=== PATIENT | female | born 1990 | race Hispanic/Latino ===

== ENCOUNTER → 2018-01-06 | Outpatient (REF) | payer OTHER ==
[2018-01-06 21:06] LABS: BASO % 0.5 % (0.0-1.0); EOS # 0.1 10^3/uL (0.0-0.50); EOS % 1.4 % (0.0-3.0); HEMATOCRIT 38.3 % (36.0-47.0); HEMOGLOBIN 13.2 g/dl (12.0-15.5); IMMATURE GRANULOCYTE % 0.3 % (0-3.0); LYMPH # 2.4 10^3/uL (1.5-6.5); LYMPH % 32.6 % (24.0-44.0); MEAN CORPUSCULAR HEMOGLOBIN 31.4 pg (27.0-33.0); MEAN CORPUSCULAR HGB CONC 34.5 g/dl (32.0-36.5); MONO # 0.6 10^3/uL (0.0-0.8); NEUTROPHILS # 4.2 10^3/uL (1.8-7.7); NEUTROPHILS % 57.2 % (36.0-66.0); PLATELET COUNT, AUTOMATED 355 10^3/uL (150-450); RED BLOOD COUNT 4.21 10^6/uL (4.00-5.40); WHITE BLOOD COUNT 7.4 10^3/uL (4.0-10.0)
[2018-01-06 21:28] LABS: FREE T4 0.94 NG/DL (0.76-1.46)
[2018-01-06 21:56] LABS: TOTAL 25(OH) VITAMIN D 13.9 NG/ML (30.0-100.0)
[2018-01-09 00:07] LABS: QUANTIFERON GOLD TB Negative (Negative); TB Test (QFT) Antigen 0.14 IU/mL (.); TB Test (QFT) Antigen Minus Ni 0.06 IU/mL (.); TB Test (QFT) Mitogen 6.87 IU/mL (.); TB Test (QFT) Nil 0.08 IU/mL (.)
== END ==
LOC: M SFHCLERA 16:55
DX: R53.82 Chronic fatigue, unspecified (principal)

== ENCOUNTER → 2018-04-08 | Outpatient (REF) | payer OTHER ==
[2018-04-08 11:56] LABS: TOTAL 25(OH) VITAMIN D 30.3 NG/ML (30.0-100.0)
== END ==
LOC: M SFHCLERA 09:24
DX: E55.9 Vitamin D deficiency, unspecified (principal)
CPT/HCPCS: 82306

== ENCOUNTER 2018-09-16 13:09 | Emergency (ER) | payer OTHER | END 2018-09-16 14:40 | disposition home or self-care (01) | LOC: M ED 13:09 | DX: S76.101A Unspecified injury of right quadriceps muscle, fascia and tendon, initial encounter (principal); Y99.9 Unspecified external cause status | CPT/HCPCS: 93971 ==

== ENCOUNTER → 2019-03-02 | Outpatient (REF) | payer OTHER ==
[~2019-03-02] MED LIST: NEXP1IMP SC
[2019-03-03 10:28] LABS: HEPATITIS B SURFACE ANTIBODY POSITIVE (POSITIVE); RUBELLA IgG QUALITATIVE IMMUNE (IMMUNE)
[2019-03-04 08:15] LABS: HERPES ZOSTER, VARICELLA IgG <135 index (Immune >165); RUBEOLA IgG ANTIBODY >300.0 AU/mL (Immune >29.9)
== END ==
LOC: M SFHCLERA 12:06
PROVIDERS: ATTEND Family Medicine
DX: Z02.89 Encounter for other administrative examinations (principal)
CPT/HCPCS: 86580; 86706; 86735; 86762; 86765; 86787; G0463